=== PATIENT | female | born 1980 | race Asian ===

== ENCOUNTER 2023-09-22 16:06 | Emergency (ER) | payer OTHER ==
[~2023-09-22] VITALS: Ht 162.6 cm; Wt 95.3 kg
[2023-09-22 16:26] VITALS: BP_SYST 162; PULSE 78; RESP 18; TEMP 98.3; O2SAT 98
[2023-09-22] MEDS ORDERED: TRAM50TA2 PO (17:14)
[2023-09-22] MEDS ORDERED: CIPR10DR17 OT (17:14)
[2023-09-22 17:57] VITALS: BP_SYST 162; PULSE 78; RESP 18; TEMP 98.3; O2SAT 98
== END 2023-09-22 17:52 | disposition home or self-care (01) ==
LOC: SED 16:06
DX: H60.92 Unspecified otitis externa, left ear (principal); I10 Essential (primary) hypertension; Z88.6 Allergy status to analgesic agent; Z88.5 Allergy status to narcotic agent
CPT/HCPCS: 99283